=== PATIENT | male | born 1965 | race African-American/Black ===

== ENCOUNTER 2016-12-05 05:29 | Day surgery (SDC) | payer BC ==
[~2016-12-05] VITALS: Ht 182.9 cm; Wt 101.6 kg
[~2016-12-05 05:29] MED LIST: ALDACTONE25 MG PO; BUMEX2 MG PO; FEOSOL325 MG PO; IMDUR60 MG PO; LIPITOR40 MG PO; LO-DOSE ASPIRIN81 M2 PO; LONITEN10 MG PO; NORMODYNE,TRAN200 MG PO; OMEPRAZOLE40 M1 PO; PACERONE100 MG PO; XARELTO15 MG PO
[2016-12-05] MEDS ORDERED: HYDRALAZINE HCL25 MG PO (06:01)
[2016-12-05 06:17] VITALS: BP 144/92
[2016-12-05 06:26] LABS: HEMATOCRIT 40.9 % (38.0-50.0); MCH 29.8 PG (29.0-34.0); MCHC 32.3 G/DL (30.0-36.0); MCV 92.3 FL (86-99); MEAN PLAT.VOLUME 9.3 uM^3 (9.0-12.4); PLATELET COUNT 162 K/uL (156-360); RBC DIS.WIDTH-CV 15.7 % (11.8-14.6); RBC DIS.WIDTH-SD 53.3 % (39-53); RED BLOOD COUNT 4.43 M/uL (4.00-5.50); WHITE BLOOD COUNT 6.3 K/uL (4.1-10.2)
[2016-12-05 06:40] LABS: CHLORIDE 107 mEq/L (99-109); POTASSIUM 4.1 mEq/L (3.7-5.4); SODIUM 141 mEq/L (136-147)
[2016-12-05 06:42] LABS: GLUCOSE 88 mg/dL (70-99)
[2016-12-05 06:43] LABS: ANION GAP 11 MEQ/L (2-14)
[2016-12-05 06:46] LABS: GFR ESTIMATE (CALCULATED) 35 mL/min/
[2016-12-05 06:47] LABS: UREA NITROGEN (BUN) 36 mg/dL (9-23)
[2016-12-05 09:10] VITALS: BP 151/99
[2016-12-05 10:10] VITALS: BP 145/90
== END 2016-12-05 10:10 | disposition home or self-care (01) ==
LOC: SDC 05:29
PROVIDERS: Ophthalmology
DX: H43.11 Vitreous hemorrhage, right eye (principal); H33.41 Traction detachment of retina, right eye; H34.8310 Tributary (branch) retinal vein occlusion, right eye, with macular edema; I13.0 Hypertensive heart and chronic kidney disease with heart failure and stage 1 through stage 4 chronic kidney disease, or unspecified chronic kidney disease; N18.4 Chronic kidney disease, stage 4 (severe); I50.42 Chronic combined systolic (congestive) and diastolic (congestive) heart failure; I48.2 Chronic atrial fibrillation; Z79.82 Long term (current) use of aspirin
CPT/HCPCS: 80048; 85027; J0690; J1100; J2795; J3300